=== PATIENT | male | born 1945 | race Caucasian/White ===

== ENCOUNTER → 2017-05-10 | Outpatient (CLI) | payer BC ==
[~2017-05-10] MED LIST: AMLODIPINE PO; EZET1TAB30 PO; FLEC100T PO; LANS30CA PO; LEVO112T41 PO; PREG50CA PO; REGADENOSON 0.4 MG/5 ML SYRINGE ONE; SCOP1PAT TD
== END | disposition home or self-care (01) ==
LOC: CFH 08:45
PROVIDERS: ATTEND Internal Medicine Cardiovascular Disease
DX: I25.9 Chronic ischemic heart disease, unspecified (principal); I48.0 Paroxysmal atrial fibrillation; Z79.899 Other long term (current) drug therapy
CPT/HCPCS: 78452; 93017; A9502; J2785

== ENCOUNTER 2017-09-30 09:00 | Day surgery (SDC) | payer BC ==
[~2017-09-30 09:00] MED LIST changes: -REGADENOSON 0.4 MG/5 ML SYRINGE ONE
[2017-09-30] MEDS ORDERED: LIDOCAINE 2%, 20ML ONE (10:42)
[2017-09-30] MEDS ORDERED: ACETAMINOPHEN 325 MG TABLET PO PRN (11:30)
[2017-09-30] MEDS ORDERED: PREGABALIN 50 MG PO SCH (16:00)
[2017-09-30] MEDS ORDERED: FLECAINIDE 100MG TABLET PO SCH (21:00)
[2017-09-30] MEDS ORDERED: SODIUM CHLORIDE FLUSH 10ML SYR IVF SCH (21:00)
[2017-10-01] MEDS ORDERED: TEMPLATE NON-FORMULARY MED. (Lansoprazole** 30 MG) PO SCH (09:00)
[2017-10-01] MEDS ORDERED: LEVOTHYROXINE 112 MCG TABLET PO SCH (09:00)
[2017-10-01] MEDS ORDERED: SIMVASTATIN PO SCH (09:00)
[2017-10-01] MEDS ORDERED: EZETIMIBE PO SCH (09:00)
[2017-10-01] MEDS ORDERED: AMLODIPINE 5 MG PO SCH (09:00)
== END 2017-09-30 11:27 ==
LOC: CACL 09:00
PROVIDERS: ATTEND Internal Medicine Cardiovascular Disease
DX: I63.9 Cerebral infarction, unspecified (principal); F17.210 Nicotine dependence, cigarettes, uncomplicated; E03.9 Hypothyroidism, unspecified; I48.91 Unspecified atrial fibrillation; I10 Essential (primary) hypertension
CPT/HCPCS: 33282; C1764; J3490

== ENCOUNTER 2020-02-28 14:14 | Outpatient (CLI) | payer OTHER ==
[~2020-02-28 14:14] MED LIST changes: -SCOP1PAT TD; +SCOP1PAT11 TD
== END 2020-02-28 23:59 | disposition home or self-care (01) ==
LOC: CVU 14:14
PROVIDERS: ATTEND Orthopaedic Surgery
DX: I08.2 Rheumatic disorders of both aortic and tricuspid valves (principal); I11.9 Hypertensive heart disease without heart failure; I25.10 Atherosclerotic heart disease of native coronary artery without angina pectoris; I44.30 Unspecified atrioventricular block; I44.5 Left posterior fascicular block; R94.31 Abnormal electrocardiogram [ECG] [EKG]
CPT/HCPCS: 93005; 93306; 93356